=== PATIENT | female | born 1970 | race Caucasian/White ===

== ENCOUNTER 2018-10-07 08:49 | Emergency (ER) | payer OTHER ==
--- OUTSIDE RECORDS SUMMARY | 2018-10-07 09:06 | XMS REPORT | Continuity of Care Document ---
:1970 Author Organization Interface Problems Problem Status Onset Date Classification Date Comments Source Reported Medications Medication Details Route Status Patient Ordering Order Source Instructions Provider Date Allergies, Adverse Reactions, Alerts Substance Category Reaction Severity Reaction Status Date Comments Source type Reported Immunizations Immunization Date Given Site Status Last Updated Comments Source Results Order Results Value Reference Date Interpretation Comments Source Name Range Vital Signs Vital Sign Value Date Comments Source Encounters Location Location Encounter Encounter Reason Attending ADM DC Status Source Details Type Number For Provider Date Date Visit Outpatient [id number] [facility] 10/02 [facility] [place] [facility] [id number] [facility] 01/31 [facility] [place] [facility] [id number] ALFREDO BYERS 04/08 [facility] [place] Procedures Procedure Code Date Perfomer Comments Source
[2018-10-07] MEDS ORDERED: MORPHINE 4 MG/ML SYR ONE (09:37)
[2018-10-07] MEDS ORDERED: ONDANSETRON 4 MG/2 ML VIAL ONE (09:37)
[2018-10-07 09:43] LABS: Absolute Monocytes 1.1 K/uL (0.1-1.3); Absolute Neutrophil 10.6 K/uL (1.8-8.0); Basophils % 0.4 % (0-1.3); Eosinophils % 0.1 % (0-4.4); Hematocrit 38.6 % (36.0-45.0); Lymphocytes % 7.9 % (15.3-44.8); MPV 8.2 fL (7.6-11.3); Monocytes % 8.8 % (3.3-12.3); RBC Red Blood Cell Count 4.18 M/uL (3.86-4.86)
[2018-10-07 09:55] LABS: Albumin 4.1 g/dL (3.4-5.0); Bilirubin Direct 0.4 mg/dL (0-0.2); Bilirubin Total 1.9 mg/dL (0.2-1.0); Potassium 3.8 mmol/L (3.5-5.1)
[2018-10-07 10:06] LABS: Urine Bacteria 20-50 /HPF (<20); Urine Culture Reflex Order REFLEXED; Urine Mucus 1+ /HPF (NONE SEEN); Urine RBC <5 /HPF (NONE SEEN)
--- NOTE | 2018-10-07 10:35 | RAD REPORT ---
EXAM DESCRIPTION: CT - Abdomen Pelvis W Contrast - 10/07/2018 10:18 am CLINICAL HISTORY: Bilateral lower abdominal pain COMPARISON: None. TECHNIQUE: Biphasic, helical CT imaging of the abdomen and pelvis was performed following 100 ml non -ionic IV contrast. No oral contrast given. All CT scans are performed using dose optimization technique as appropriate and may include automated exposure control or mA/KV adjustment according to patient size. FINDINGS: No suspicious findings in the lung bases. The liver, spleen, and pancreas show no suspicious findings. Liver shows a mild diffuse fatty infiltr ation pattern. No gallbladder or biliary tree abnormality seen. Gallstones can be occult. No active g allbladder process suspected. Renal function is symmetric. No pyelonephritis and no obstructing calculi. In the upper pole of the r ight kidney, there is a 19 millimeter low-density mass (57 HU). This does not show simple cyst charac teristics but is homogeneous. Complex cyst would be favored over neoplastic process. This can be raquel tored on subsequent imaging or correlated with limited renal ultrasound. Urinary bladder is contracte d. No adrenal abnormalities. Filling the central pelvis there is a 12 cm AP x 16 cm TR x 13 cm CC cystic mass. This has a thick wa ll without calcification or fat component. There is a 5 x 4 centimeter soft tissue mass component rajwinder ng the inferior margin of this larger cystic mass. A normal uterus is identifiable. Ovaries are not c learly defined. Small amount of free fluid is present in the cul-de-sac. This is most likely ovarian in origin mass. The thickened lopez and possible soft tissue mass compone nt along the inferior margin elevates possibility of cystadenocarcinoma rather than cystadenoma. Harlan alejandra/dermoid remains a possibility. No omental thickening or abnormal lymphadenopathy. Abscess is unl ikely given the homogeneity of the central cystic fluid. No additional history that would elevate lik elihood of a abscess. No dilated bowel loops or bowel wall thickening. No free air or pneumatosis. No hernia identified. No suspicious bony findings. IMPRESSION: A large 16 centimeter predominantly cystic mass fills the central pelvis. This has a thi ckened wall and possible solid mass component along the inferior margin. Masses most likely ovarian in origin with cystadenocarcinoma possible given the thickened of wall and possible soft tissue mass component. Cystadenoma, dermoid and teratoma are additional considerations . Abscess is felt to be lesser in likelihood given all available information. Small quantity of ascites in the cul de sac. No omental thickening or lymphadenopathy. A 19 millimeter low-density mass upper pole right kidney does not meet simple cyst criteria. Follow-u p sonography may be helpful for further characterization.
[2018-10-07 10:47] LABS: Urine Blood TRACE (NEG); Urine Glucose NEGATIVE (NEG); Urine Protein TRACE (NEG); Urine Specific Gravity 1.015 (1.005-1.030)
[2018-10-07] MEDS ORDERED: CEFOXITIN/SWI 1gm 1 GM/10 ML SYR ONE (11:03)
[2018-10-07] MEDS ORDERED: METRONIDAZOLE 500mg IVPB 500 MG/100 ML BAG IV ONE (11:04)
--- NOTE | 2018-10-07 11:25 | ER ---
Nurse's Notes [facility] Name: Christie Elise Age: 48 yrs Sex: Female : 1970 Arrival Date: 10/07/2018 Time: 08:54 Bed 7 Private MD: None, None Diagnosis: Ovarian Mass;Urinary tract infection, site not specified Presentation: 10/07 09:14 Presenting complaint: Patient states: LLQ abdominal pain started Thursday, radiated to jl7 RLQ and upper abdomen on palpation. Transition of care: patient was not received from another setting of care. Onset of symptoms was October 05, 2018. Risk Assessment: Do you want to hurt yourself or someone else? Patient reports no desire to harm self or others. Initial Sepsis Screen: Does the patient meet any 2 criteria? No. Patient's initial sepsis screen is negative. Does the patient have a suspected source of infection? No. Patient's initial sepsis screen is negative. Care prior to arrival: None. 09:14 Method Of Arrival: Ambulatory [facility] 09:14 Acuity: ROSY 3 jl7 Triage Assessment: 09:18 General: Appears in no apparent distress. uncomfortable, Behavior is calm, cooperative, jl7 appropriate for age. Pain: Complains of pain in abdomen diffusely Pain currently is 6 out of 10 on a pain scale. Neuro: Level of Consciousness is awake, alert, obeys commands, Oriented to person, place, time, situation. Cardiovascular: Patient's skin is warm and dry. Respiratory: Airway is patent Respiratory effort is even, unlabored, Respiratory pattern is regular, symmetrical. GI: Abdomen is round non-distended, Bowel sounds present X 4 quads. Abd is soft X 4 quads Abdomen is tender to palpation in right upper quadrant, left upper quadrant and right lower quadrant. Derm: Skin is pink, warm \T\ dry. 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 - Social history:: Smoking status: Patient/guardian denies using tobacco. - Ebola Screening: : No symptoms or risks identified at this time. Screenin:30 Abuse screen: Denies threats or abuse. Denies injuries from another. Nutritional jl7 screening: No deficits noted. Tuberculosis screening: No symptoms or risk factors identified. Fall Risk IV access (20 points). Total Sanchez Fall Scale indicates No Risk (0-24 pts). Assessment: 09:30 General: See triage assessment. jl7 10:30 Reassessment: Patient appears in no apparent distress at this time. Patient and/or jl7 family updated on plan of care and expected duration. Pain level reassessed. Patient is alert, oriented x 3, equal unlabored respirations, skin warm/dry/pink. Patient states symptoms have improved. Vital Signs: 09:17 BP 159 / 99; Pulse 107; Resp 16 S; Temp 99.5(O); Pulse Ox 99% on R/A; Pain 6/10; jl7 10:30 BP 133 / 89; Pulse 103; Resp 16 S; Pulse Ox 99% on R/A; jl7 11:49 BP 145 / 89; Pulse 102; Resp 16 S; Pulse Ox 99% on R/A; jl7 ED Course: 08:54 Patient arrived in ED. mr 08:54 None, None is Private Physician. mr 09:06 [facility]divar [facility]. jr8 09:06 Jw Davidson MD is Attending Physician. jr8 09:14 Jorge Don, DONATO is Primary Nurse. jl7 09:16 Triage completed. jl7 09:17 Arm band placed on right wrist. jl7 09:26 Initial lab(s) drawn, by ny, sent to lab. Urine collected: clean catch specimen, shasha dh3 colored. Inserted saline lock: 22 gauge in right antecubital area, using aseptic technique. Blood collected. 09:30 Patient has correct armband on for positive identification. Placed in gown. Bed in low jl7 position. Call light in reach. Side rails up X 1. Pulse ox on. NIBP on. Warm blanket given. 10:19 CT Abd/Pelvis - W/Contrast In Process Unspecified. EDMS 11:50 No provider procedures requiring assistance completed. IV discontinued, intact, jl7 bleeding controlled, No redness/swelling at site. Pressure dressing applied. Administered Medications: 09:35 Drug: Zofran 4 mg Route: IVP; Site: right antecubital; jl7 10:00 Follow up: Response: No adverse reaction; Nausea is decreased jl7 09:37 Drug: morphine 4 mg Route: IVP; Site: right antecubital; jl7 10:00 Follow up: Response: No adverse reaction; Pain is decreased jl7 11:00 Drug: Mefoxin 1 grams {Note: administered per protocol, IVP over 3 min.} Route: IVPB; jl7 Infused Over: 30 mins; Site: right antecubital; 11:03 Follow up: Response: No adverse reaction; IV Status: Completed infusion jl7 11:05 Drug: Flagyl 500 mg Volume: 100 ml; Route: IVPB; Rate: 200 ml/hr; Infused Over: 30 jl7 mins; Site: right antecubital; 11:35 Follow up: Response: No adverse reaction; IV Status: Completed infusion 7 Outcome: 11:24 Discharge ordered by . jr8 11:50 Discharged to home ambulatory, with family. jl7 11:50 Condition: stable 11:50 Discharge instructions given to patient, family, Instructed on discharge instructions, follow up and referral plans. medication usage, Demonstrated understanding of instructions, follow-up care, medications, Prescriptions given X 3. 11:50 Patient left the ED. jl7 Signatures: Dispatcher [employer] Delia Pepe Josh, PA PA jr8 Jorge Don RN RN jl7 Sallie Nixon 3
--- NOTE | 2018-10-07 11:26 | EDPHYS ---
Physician Documentation [facility] Name: Christie Elise Age: 48 yrs Sex: Female : 1970 Arrival Date: 10/07/2018 Time: 08:54 Bed 7 Private MD: None, None ED Physician Jw Davidson HPI: 10/07 09:14 This 48 yrs old Female presents to ER via Unassigned with complaints of jr8 Abdominal Pain. 09:14 The patient presents with abdominal pain in the lower abdomen. Onset: The jr8 symptoms/episode began/occurred acutely, 2 day(s) ago. The symptoms do not radiate. Associated signs and symptoms: Pertinent positives: nausea. The symptoms are described as crampy, sharp. Modifying factors: The symptoms are alleviated by nothing, the symptoms are aggravated by nothing. Severity of pain: At its worst the pain was moderate in the emergency department the pain is unchanged. The patient has not experienced similar symptoms in the past. The patient has not recently seen a physician. 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 - Social history:: Smoking status: Patient/guardian denies using tobacco. - Ebola Screening: : No symptoms or risks identified at this time. ROS: 09:14 Eyes: Negative for injury, pain, redness, and discharge, ENT: Negative for injury, jr8 pain, and discharge, Neck: Negative for injury, pain, and swelling, Cardiovascular: Negative for chest pain, palpitations, and edema, Respiratory: Negative for shortness of breath, cough, wheezing, and pleuritic chest pain, Back: Negative for injury and pain, MS/Extremity: Negative for injury and deformity, Skin: Negative for injury, rash, and discoloration, Neuro: Negative for headache, weakness, numbness, tingling, and seizure. 09:14 Abdomen/GI: Positive for abdominal pain, nausea, Negative for vomiting, diarrhea, constipation, abdominal distension, anorexia, dysphagia, hematemesis, black/tarry stool, rectal pain, rectal bleeding, bowel incontinence, flatulence. Exam: 09:14 Eyes: Pupils equal round and reactive to light, extra-ocular motions intact. Lids and jr8 lashes normal. Conjunctiva and sclera are non-icteric and not injected. Cornea within normal limits. Periorbital areas with no swelling, redness, or edema. ENT: Nares patent. No nasal discharge, no septal abnormalities noted. Tympanic membranes are normal and external auditory canals are clear. Oropharynx with no redness, swelling, or masses, exudates, or evidence of obstruction, uvula midline. Mucous membranes moist. Neck: Trachea midline, no thyromegaly or masses palpated, and no cervical lymphadenopathy. Supple, full range of motion without nuchal rigidity, or vertebral point tenderness. No Meningismus. Cardiovascular: Regular rate and rhythm with a normal S1 and S2. No gallops, murmurs, or rubs. Normal PMI, no JVD. No pulse deficits. Respiratory: Lungs have equal breath sounds bilaterally, clear to auscultation and percussion. No rales, rhonchi or wheezes noted. No increased work of breathing, no retractions or nasal flaring. Skin: Warm, dry with normal turgor. Normal color with no rashes, no lesions, and no evidence of cellulitis. MS/ Extremity: Pulses equal, no cyanosis. Neurovascular intact. Full, normal range of motion. Neuro: Awake and alert, GCS 15, oriented to person, place, time, and situation. Cranial nerves II-XII grossly intact. Motor strength 5/5 in all extremities. Sensory grossly intact. Cerebellar exam normal. Normal gait. 09:14 Abdomen/GI: Inspection: obese Bowel sounds: normal, in all quadrants, Palpation: soft, in all quadrants, moderate abdominal tenderness, in the abdomen diffusely, mass, is not appreciated, rebound tenderness, is not appreciated, voluntary guarding, is not appreciated, involuntary guarding, is not appreciated, no appreciated organomegaly, Indicators: McBurney's point is not tender, Chapman's sign is negative, Rovsing's sign is negative, Liver: tenderness, is not appreciated. 09:14 Back: pain, is absent, ROM is normal, normal spinal alignment noted, CVA tenderness, that is mild, is noted bilaterally. Vital Signs: 09:17 BP 159 / 99; Pulse 107; Resp 16 S; Temp 99.5(O); Pulse Ox 99% on R/A; Pain 6/10; jl7 10:30 BP 133 / 89; Pulse 103; Resp 16 S; Pulse Ox 99% on R/A; jl7 11:49 BP 145 / 89; Pulse 102; Resp 16 S; Pulse Ox 99% on R/A; jl7 MDM: 09:06 Patient medically screened. jr8 11:20 Data reviewed: vital signs, nurses notes, lab test result(s), radiologic studies, CT jr8 scan. Data interpreted: Pulse oximetry: on room air is 99 %. Interpretation: normal. Counseling: I had a detailed discussion with the patient and/or guardian regarding: the historical points, exam findings, and any diagnostic results supporting the discharge/admit diagnosis, lab results, radiology results, the need for outpatient follow up, an OB/Gyne specialist, to return to the emergency department if symptoms worsen or persist or if there are any questions or concerns that arise at home. ED course: Detailed discussion with patient about abdominal mass. That she is mildly feverish with tachycardia and Elevated WBC count. This could be related to the UTI but given abnormality of mass would like to attempt transfer for gynecologic surgeon to further evaluate her. Patient want's to f/u out patient goetz. Would come back if needed. S/S given to patient to watch for that would indicate need for emergent f/u. Patient is an established [facility] patient for gynecology. Recommended her following up with them today. Patient agreed and will go over there. CT and labs along with read out given to patient . 10/07 09:15 Order name: Basic Metabolic Panel; Complete Time: 10:16 10/07 09:15 Order name: CBC with Diff; Complete Time: 09:51 10/07 09:15 Order name: Creatinine for Radiology; Complete Time: 09:54 10/07 09:15 Order name: Hepatic Function; Complete Time: 10:16 10/07 09:15 Order name: Lipase; Complete Time: 10:16 10/07 09:35 Order name: Urine Microscopic Only; Complete Time: 10:16 dh3 10/07 09:50 Order name: Urine Dipstick--Ancillary (enter results); Complete Time: 11:03 eb 10/07 09:50 Order name: Urine --Ancillary (enter results); Complete Time: 11:03 eb 10/07 09:59 Order name: CT Abd/Pelvis - W/Contrast; Complete Time: 10:42 [facility] 10/07 10:10 Order name: Urine Culture [facility] 10/07 09:15 Order name: IV Saline Lock; Complete Time: :33 8 10/07 09:15 Order name: Labs collected and sent; Complete Time: : 8 10/07 09:16 Order name: Urine Test (obtain specimen); Complete Time: [facility] 10/07 09:16 Order name: Urine Dipstick-Ancillary (obtain specimen); Complete Time: : jr Administered Medications: 09:35 Drug: Zofran 4 mg Route: IVP; Site: right antecubital; jl7 10:00 Follow up: Response: No adverse reaction; Nausea is decreased jl7 09:37 Drug: morphine 4 mg Route: IVP; Site: right antecubital; jl7 10:00 Follow up: Response: No adverse reaction; Pain is decreased jl7 11:00 Drug: Mefoxin 1 grams {Note: administered per protocol, IVP over 3 min.} Route: IVPB; jl7 Infused Over: 30 mins; Site: right antecubital; 11:03 Follow up: Response: No adverse reaction; IV Status: Completed infusion jl7 11:05 Drug: Flagyl 500 mg Volume: 100 ml; Route: IVPB; Rate: 200 ml/hr; Infused Over: 30 jl7 mins; Site: right antecubital; 11:35 Follow up: Response: No adverse reaction; IV Status: Completed infusion jl7 Disposition: 10/07/18 11:24 Discharged to Home. Impression: Ovarian Mass, Urinary tract infection, site not specified. - Condition is Stable. - Discharge Instructions: Urinary Tract Infection, Adult. - Prescriptions for Tramadol 50 mg Oral Tablet - take 1 tablet by ORAL route every 8 hours as needed; 20 tablet. Bactrim DS 800- 160 mg Oral Tablet - take 1 tablet by ORAL route every 12 hours for 7 days; 14 tablet. Zofran 4 mg Oral Tablet - take 1 tablet by ORAL route every 12 hours As needed; 20 tablet. - Medication Reconciliation Form, Thank You Letter, Antibiotic Education, Prescription Opioid Use form. - Follow up: Private Physician; When: Upon discharge from the Emergency Department; Reason: Recheck today's complaints, Continuance of care, Re-evaluation by your physician. - Problem is new. - Symptoms have improved. Signatures: Dispatcher [employer] EDRnoald Gomez PA PA jr8 Jorge Don RN RN jl7 Corrections: (The following items were deleted from the chart) 11:50 11:24 10/07/2018 11:24 Discharged to Home. Impression: Ovarian Mass; Urinary tract jl7 infection, site not specified. Condition is Stable. Forms are Medication Reconciliation Form, Thank You Letter, Antibiotic Education, Prescription Opioid Use. Follow up: Private Physician; When: Upon discharge from the Emergency Department; Reason: Recheck today's complaints, Continuance of care, Re-evaluation by your physician. Problem is new. Symptoms have improved. jr8
== END 2018-10-07 11:50 | disposition home or self-care (01) ==
LOC: ER 08:49
DX: N39.0 Urinary tract infection, site not specified (principal); N83.9 Noninflammatory disorder of ovary, fallopian tube and broad ligament, unspecified; Z88.5 Allergy status to narcotic agent
CPT/HCPCS: 36415; 74177; 80048; 80076; 81003; 81015; 81025; 83690; 85025; 87086; 87088; 96365; 96375; 99284; J2405; Q9967